=== PATIENT | male | born 1950 | race African-American/Black ===

== ENCOUNTER 2022-09-28 01:49 | Day surgery (SDC) | payer OTHER, SELFPAY ==
--- NOTE | 2022-09-25 09:29 | PC.NURSE ---
Report ENTER THROUGH DOCTOR'S ENTRANCE AND GO DIRECTLY TO THE PRE OP AREA.SECURITY WILL MEET YOU IN THE HANDICAPPED PARKING LOT NEXT TO THE DOCTOR'S PARKING LOT. located off [address], at time _0600 on date _09/28/22 . Planned Procedure Time: __0730 . Time changes happen often and if your time is changed the preop area will call you the afternoon before. - You and your visitor will be asked to self-screen and do not enter if you have any COVID symptoms. - A mask is optional within the hospital at this time. Patients may have clear liquids (water, carbonated beverages, clear teas, apple juice) until 3 hours prior to surgery with a maximum of 20 ounces. - No food from midnight until time of surgery - Infants may have breast milk until 4 hours before surgery, infant formula 6 hours prior to surgery. - Children will be allowed to drink immediately following surgery. If applicable, please bring a bottle or sippy cup to assist with drinking. Juice, water, soda, and popsicles are readily available. For infants on formula, please bring formula the day of surgery. Pacifiers are allowed. Take the following medications with a SIP of water the morning of surgery: __NONE DO NOT STOP ANY OF YOUR OTHER PRESCRIPTION MEDICATIONS PRIOR TO SURGERY ?EXCEPT THE FOLLOWING Medications to discontinue per physician ___NONE Date to take last dose Please no make-up, nail georgian, hairspray, perfume, deodorant, or body powder the day of surgery. No jewelry (including any body piercings) or valuables the day of surgery, leave them at home. Please take a shower or bath the night before, or the morning of, surgery with an antibacterial soap. Wear comfortable, loose fitting clothing. Children are encouraged to wear pajamas. - Jewelry must be removed prior to entering the operating room. Rings and piercings that are not removed may be cut off. - The hospital will not accept responsibility for valuables. - Please leave all valuables, including medications, at home the day of surgery. If you are going home after surgery, a licensed route relief driver must drive you home. - NO public transportation without another adult if you receive anesthesia. - We recommend that an adult stay with you for 24 hours following discharge. - We also recommend that you do not drive, make important decision, drink alcoholic beverages, or take any drugs that were not prescribed by your health care provider for at least 24 hours after your discharge time. For Pediatric surgeries, we recommend two adults accompany the child home. Follow any additional instructions given to you from your surgeon. If you or anyone in your household have experienced Covid symptoms in the past week, please notify your surgeon or the nurse liaison at the phone number below for possible testing. Telephone instructions given to _[facility] and asked if any additional questions and then verbalized understanding. Patient advised to call surgeon office or pre surgery nurse liaison [phone] if any additional questions.
[2022-09-25 09:39] VITALS: BMI 22.7
[2022-09-28] VITALS (9 sets, daily range): BP systolic 106–148; BP diastolic 62–84; PULSE 63–105; RESP 10–20; TEMP 36–36.8; O2SAT 93–100; BMI 20.5
--- NOTE | ~2022-09-28 | XR_ITS ---
EXAMINATION: XR surgery orthopedic DATE: 09/28/2022 10:35 INDICATION: Orthopedic procedure at the left fourth digit TECHNIQUE: 2 fluoroscopic images of the left fourth digit were obtained during procedure performed by Dr. Mcnamara. Radiologist was not present for the imaging or procedure. The amount of fluoroscopy time used during this procedure was 0.8 minutes. COMPARISON: None. FINDINGS: Likely postoperative soft tissue tissue swelling and soft tissue gas centered about the fourth proxim al interphalangeal joint. There are a pair of percutaneous fixation pins spanning the joint which is fixed with 45 degree of flexion and with some ulnar and dorsal subluxation of the middle phalanx with respect to the head of the proximal phalanx. The articular cortices are indistinct which is of indet erminate etiology potentially related to either trauma, infection or osteotomies. Polyarticular osteo arthritis with moderate severity joint space narrowing at the fifth metacarpophalangeal joint and fif th distal interphalangeal joint with mild joint space at the fourth metacarpophalangeal, second and f ifth proximal and fourth distal interphalangeal joints. IMPRESSION: 1. Fluoroscopy utilized during orthopedic procedures likely centered at the fourth proximal interphal angeal joint. See procedure note for further detail. Reviewed, dictated and finalized at location L. IMPRESSION: 1. Fluoroscopy utilized during orthopedic procedures likely centered at the fou rth proximal interphalangeal joint. See procedure note for further detail.
[2022-09-28] MEDS: LACTATED RINGERS 1,000 ML 30 ML IV CONT ×2 (06:30→10:46)
[2022-09-28 06:54] LABS: Anion Gap 4 mmol/L (8-16); Blood Urea Nitrogen 12 mg/dL (9-20); Calcium 9.5 mg/dL (8.4-10.2); Carbon Dioxide 36 mmol/L (22-30); Chloride 97 mmol/L (98-107); Estimated CRCL calculation 58 ml/min; Estimated Glomerular Filt Rate > 60; Glucose 98 mg/dL (65-110); Potassium 4.1 mmol/L (3.4-5.0); Sodium 137 mmol/L (137-145)
--- NOTE | 2022-09-28 07:05 | P.PNAN_ITS ---
Anes - Initial Pre Proc Eval Procedure: Operation Date: 09/28/22 07:30 Proposed Procedures p Open Reduction Left Fourth Proximal Interphalangeal Joint Dislocation - Bubba Mcnamara MD Date/Time: 09/28/22 07:05 Surgeon: Bubba Mcnamara MD Pre Op Diagnosis: dislocation left 4th proximal interphalangeal join Patient Data Age: 72 Gender: M Height: 1.75 m Weight: 69.9 kg Allergies Allergy/AdvReac Type Severity Reaction Status Date / Time No Known Allergies Allergy Verified 09/28/22 07:04 Home Medications Medication Instructions Recorded Confirmed Type hydrochlorothiazide 12.5 mg tablet 12.5 mg PO DAILY 09/25/22 09/25/22 History omeprazole 20 mg capsule,delayed 20 mg PO DAILY 09/25/22 09/25/22 History release Laboratory Tests 09/28/22 06:31 Sodium 137 mmol/L (137-145) Potassium 4.1 mmol/L (3.4-5.0) Chloride 97 L mmol/L (98-107) Carbon Dioxide 36 H mmol/L (22-30) Anion Gap 4 L mmol/L (8-16) BUN 12 mg/dL (9-20) Creatinine 1.00 mg/dL (0.7-1.3) Estim Creat Clear Calc 58 ml/min Estimated GFR > 60 (59 - ) Glucose 98 mg/dL (65-110) Calcium 9.5 mg/dL (8.4-10.2) Patient hx anesthesia problems: none Family hx anesthesia problems: none Results Review: All pre-operative results and documents have been reviewed as part of the pre- operative evaluation. Anes - Eval Final PreProcedure Day of Procedure 09/28/22 07:05 Patient weight: normal Heart: regular rate and rhythm Lungs: clear to auscultation Airway: Mallampati scale class II Neurological: alert and oriented Last oral intake: >/= 8 hours ASA classification: II Emergent: no Anesthetic plan: proceed Anesthesia type and monitoring: general GIVS and standard monitoring Results Review: All pre-operative results and documents have been reviewed as part of the pre- operative evaluation. Informed Consent: The patient's anesthetic plan and its attendant risks and benefits were discussed with the patient/family/POA. Questions were solicited and answers provided to the satisfaction of the patient/family/POA.
--- NOTE | 2022-09-28 07:13 | WPDHPUPDATE1 ---
History and Physical Update Update Date/Time: 09/28/22 07:13 History and Physical has been reviewed, including an updated exam of the patient. There are NO changes in the patient's condition. Risks, benefits, and alternatives have been discussed and questions answered. Patient agrees to proceed with procedure.
--- NOTE | 2022-09-28 07:20 | SUR.PREOP ---
0720- Clarified with Dr. Mcnamara if antibiotic order needed for procedure. Per Dr. Mcnamara order 2GM Ancef IV.
[2022-09-28] MEDS: ceFAZolin 2 GM/D5W 50 ML 2 GM/50 ML BAG IVPB (07:34)
[2022-09-28] MEDS: LIDO 1%/EPINEPHRINE 1:100,000 20 ML VIAL 3 ML INFILTRATE (07:59)
--- NOTE | 2022-09-28 11:13 | W.PM.PROC2 ---
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 Surgeon Bubba Mcnamara MD Director [employer] Research [place] [facility] Anesthesia General Indications Irreducible right 4th PIPJ dislocation. Findings severe arthrosis of the PIPJ that remained irreducible Description of Procedure The dislocated right 4th finger was marked on the patient waiting in the holding area with his consent. He was taken to the operating room was placed supine on the operating table. Given general endotracheal anesthesia. The right upper extremity was prepped and draped in usual fashion. Curving dorsal and palmar Harry flap marking were placed on the finger. The digit was blocked with 1% lidocaine with epinephrine. The extremity was exsanguinated and the tourniquet inflated to 250 mmHg. The digit was imaged with C-arm A curving dorsal incision was made and skin flaps elevated sufficiently to access joint capsule between the central slip and the lateral bands. Care was taken to preserve the insertion of the central slip. Lateral band was elevated to expose capsule . This was opened allowing visualization the base of the middle phalanx. Some small pieces of bone and cartilage were debrided. I tried to define a dorsal dislocation of the volar plate. I could not confirm that it was interspersed over the proximal phalanx head. Amorphous tissue was excised however allowing visualization of the head of the proximal phalanx. Attempt was made to push his tissue palmarly out of the joint space. This tissue was dense and not easily mobilized. This did not allow reduction. Little by little all this tissue was trimmed away. Was cut free from collateral ligaments. Still reduction could not be obtained. Both collateral ligaments were the ventrally divided. At that point the hand was turned over and the Harry incision made exposing the area of the proximal interphalangeal joint. The sheath including the A 3 katy were elevated to 1 side opposing the tendons. These were elevated from the joint and it appeared that volar plate no longer resided on the distal aspect of the proximal phalanx. I was not able to identify an intact structure that could be brought from the joint to the palmar side. On the palmar head of the proximal phalanx a normal cartilage surface was not to be found. The soft tissue found in the area appeared to be consistent with chronic osteo arthritis. Multiple attempts were made to reduce the dislocation, releasing additional presumed constraints as we went. Ventrally it appeared that the volar plate should have been completely released from the insertion. Slips of the superficialis tendon was noted to be in anatomic position and unscarred. The long flexor tendon was in anatomic position. Lateral bands were not found encircling condyles. As much reduction was done as I could obtain. We determined this joint would not be expected to function properly. I could not fully reduce it. It appeared to have considerable evidence of osteoarthritis. The tendons had been extensively manipulated during this procedure.. It appeared that the best outcome we could provide would be to pin this joint in about 25? of flexion. This was not planned as a formal arthrodesis. The patient had not had use of this joint for a while and it appeared that this fixation would probably eventually provide as a fibrous arthrodesis. 2 .045 in C wires were passed retrograde from the middle portion of the middle phalanx into the shaft of the proximal phalanx. These were cut near the skin and Jergens balls applied to each. The tourniquet was deflated the wound was washed out with saline and the skin was closed with running 5 0 nylon. The bulky bandage with ulna
[2022-09-28] MEDS: oxyCODONE HCL (*CRX) 5 MG TAB IR PO (12:28)
== END 2022-09-28 12:55 | disposition home or self-care (01) ==
PROVIDERS: Anesthesiology; Visit Provider Plastic Surgery
PROC: (CPT 26785; principal; 2022-09-28 07:30)
DX: S63.285A Dislocation of proximal interphalangeal joint of left ring finger, initial encounter (principal); X58.XXXA Exposure to other specified factors, initial encounter; Y93.67 Activity, basketball
CPT/HCPCS: 26785; 36415; 80048; 99199; A9270; C1713; J0690; J1100; J2250; J2405; J2704; J3010; J7120